=== PATIENT | female | born 1985 | race Caucasian/White ===

== ENCOUNTER 2017-01-22 20:12 | Emergency (ER) | payer MEDICAID ==
[2015-10-20 04:38] VITALS: BMI 50.0
[~2017-01-22 20:12] MED LIST: HYDROCODON-ACE1 EAC7 PO; IBUPROFEN600 MG PO; PRENATAL COMPLE1 TAB PO
== END 2017-01-22 20:54 | disposition home or self-care (01) ==
LOC: D.ER 20:12
DX: H66.92 Otitis media, unspecified, left ear (principal); J06.9 Acute upper respiratory infection, unspecified; K08.89 Other specified disorders of teeth and supporting structures; J02.9 Acute pharyngitis, unspecified; R53.81 Other malaise; R59.9 Enlarged lymph nodes, unspecified; R50.9 Fever, unspecified; F17.200 Nicotine dependence, unspecified, uncomplicated